=== PATIENT | female | born 1970 | race Two or more races ===

== ENCOUNTER 2022-12-06 11:12 | Emergency (ER) | payer SELFPAY ==
[~2022-12-06] VITALS: Ht 162.6 cm; Wt 86.2 kg
[2022-12-06] MEDS ORDERED: KETOROLAC TROMETHAMINE INJ 60 MG/2 ML VIAL IM ONE (12:30)
[2022-12-06] MEDS ORDERED: MORPHINE SULFATE INJ 2 MG/ML DISP.SYRIN IM ONE (12:30)
[2022-12-06] MEDS ORDERED: KETOROLAC TROMETHAMINE INJ 30 MG/ML VIAL ONE (12:48)
[2022-12-06] MEDS ORDERED: MORPHINE SULFATE INJ 4 MG/ML DISP.SYRIN ONE (12:48)
[2022-12-06] MEDS ORDERED: CYCL10TA9 PO (15:51)
[2022-12-06] MEDS ORDERED: IBUP-1955 PO (15:51)
[2022-12-06 16:19] VITALS: BP 136/86
== END 2022-12-06 16:19 | disposition home or self-care (01) ==
LOC: ER 11:14
DX: M54.50 Low back pain, unspecified (principal); Z90.89 Acquired absence of other organs; Z88.8 Allergy status to other drugs, medicaments and biological substances
CPT/HCPCS: 99285; 96372 ×2; 72110; J2270; J1885